=== PATIENT | female | born 1985 | race Caucasian/White ===

== ENCOUNTER 2020-07-07 23:18 | Emergency (ER) | payer MEDICAID ==
[~2020-07-07] VITALS: Ht 170.2 cm; Wt 104.3 kg
[2020-07-07 23:26] VITALS: Ht 170.2 cm; Wt 104.3 kg
[2020-07-08 00:21] LABS: UA SPECIFIC GRAVITY 1.025 (1.005-1.035); microscopic required? YES; urine erythrocyte 1+ (NEGATIVE)
[2020-07-08 00:45] LABS: BASOPHIL % 3.1 % (0.2-1.3); PLATELET COUNT 235 x10^3mcL (179-408); RED CELL DISTRIBUTION WIDTH 12.6 % (12.3-17.7)
[2020-07-08 00:58] LABS: CALCIUM 9.1 mg/dL (8.5-10.1); CARBON DIOXIDE 27.7 mmol/L (21-32); CHLORIDE SERUM 105 mmol/L (98-107); CREATININE SERUM 0.5 mg/dL (0.6-1.0); GFR1 > 60 mL/min; GLUCOSE SERUM 89 mg/dL (74-106); POTASSIUM SERUM 3.7 mmol/L (3.5-5.1); SODIUM SERUM 139 mmol/L (136-145)
[2020-07-08 01:02] LABS: ALKALINE PHOSPHATASE 75 U/L (46-116); ALT/SGPT 36 U/L (14-59); AMYLASE 95 U/L (25-115); AST/SGOT 19 U/L (15-37); BILIRUBIN TOTAL 0.6 mg/dL (0.20-1.00); LIPASE 466 IU/L (73-393); TOTAL PROTEIN, SERUM 6.7 g/dL (6.4-8.2)
[2020-07-08] MEDS ORDERED: KEF500 PO (02:29)
[2020-07-08] MEDS ORDERED: MOT800 PO (02:29)
[2020-07-08] MEDS ORDERED: VOLTAREN100 GM TOP (02:29)
[2020-07-08 02:44] VITALS: BP 114/67
== END 2020-07-08 02:44 | disposition home or self-care (01) ==
LOC: ED 23:18
PROVIDERS: Emergency Medicine
DX: G89.18 Other acute postprocedural pain (principal); N39.0 Urinary tract infection, site not specified; Z98.890 Other specified postprocedural states
CPT/HCPCS: J0696; J1200; J1885; J2765; J7060; Q9967